=== PATIENT | male | born 1985 | race Caucasian/White ===

== ENCOUNTER 2016-12-25 21:11 | Emergency (ER) | payer SELFPAY ==
[2016-12-25 21:30] VITALS: BP 121/73; PULSE 114; TEMP 98; BMI 29.0
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
[2016-12-25] MEDS ORDERED: KETOROLAC TROMETHAMINE 10 MG TAB PO ONE (22:56)
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
== END 2016-12-26 00:20 ==
LOC: ED 21:11
DX: R07.89 Other chest pain (principal); M79.642 Pain in left hand
CPT/HCPCS: 71020; 73130; 93005; 99282; J3490